=== PATIENT | female | born 1980 | race Caucasian/White ===

== ENCOUNTER 2018-08-30 17:12 | Emergency (ER) | payer OTHER, SELFPAY ==
[2018-08-30 17:17] VITALS: BP 116/76; PULSE 73; RESP 18; TEMP 37.2; O2SAT 100; BMI 19.2
[2018-08-30 17:19] VITALS: BP 116/76; PULSE 73; RESP 18; TEMP 37.2; O2SAT 100; BMI 19.2
--- NOTE | 2018-08-30 17:21 | ED.ABDPAIN ---
HPI - Abdominal Pain <Deysi Rosales PA-C - Last Filed: 08/30/18 20:04> General Chief Complaint: Abdominal Pain Stated Complaint: upper right abdominal pain Time Seen by Provider: 08/30/18 17:15 Source: patient Mode of arrival: ambulatory Limitations: no limitations History of Present Illness HPI narrative: This generally healthy 27-year-old complains of right upper quadrant pain which is constant for the last 3 days. She states it is like a stitch that 1 gets when running, but will not resolve. She states it is worse with movement, i.e. moving from supine to sit, somewhat better lying flat. She states that this is associated with reduced appetite, maybe some nausea on Sunday but none since, just does not want to eat. She has not had vomiting or diarrhea or blood in the stools, normal bowel movements. She denies any urinary symptoms or hematuria. She denies any recent respiratory symptoms or cough. She denies chest pain or dyspnea. She denies fever or rash or other new complaints on systems review. She states that she does have a 35 lb 4-year-old and thought maybe just due to lifting which is why she did not come in initially, however has had rib strain in the past and this is not typical. She denies any possibility of , LMP 2 days ago Related Data Home Medications Medication Instructions Recorded Confirmed No Known Home Medications 08/30/18 08/30/18 Allergies Allergy/AdvReac Type Severity Reaction Status Date / Time Sulfa (Sulfonamide Allergy Verified 08/30/18 17:16 Antibiotics) ENTEX Allergy Uncoded 08/30/18 17:16 Review of Systems <Deysi Rosales PA-C - Last Filed: 08/30/18 20:04> Review of Systems ROS Unobtainable: All systems reviewed & are unremarkable except as noted in HPI and below PFSH <Deysi Rosales PA-C - Last Filed: 08/30/18 20:04> Medical History (Updated 08/30/18 @ 19:39 by Deysi Rosales PA-C) No chronic problems (Chronic) Surgical History (Updated 08/30/18 @ 17:38 by Deysi Rosales PA-C) Status post knee surgery (Resolved) S/P T&A (status post tonsillectomy and adenoidectomy) (Resolved) Status post eye surgery (Resolved) Status post catheter-placed plug or coil occlusion of PDA (Resolved) Social History Smoking Status: Never smoker Social History Smoking Status: Never smoker Exam <Deysi Rosales PA-C - Last Filed: 08/30/18 20:04> Narrative Exam Narrative: GENERAL APPEARANCE: Patient sitting comfortably, in no distress. HEENT: PERRL, EOMI, no scleral icterus, conjunctivae pink, normal oropharynx NECK: Supple LUNGS: Clear to auscultation bilaterally. CHEST: Tender along the 12th rib anterior lateral borders bilaterally, more on the right HEART: Rate and rhythm regular, normal S1 and S2, no S3 or S4. ABDOMEN: Soft, nondistended, bowel sounds present x 4 quadrants, no masses palpable, no hepatosplenomegaly. moderate right upper quadrant to midline tenderness, less on the left upper quadrant, no lower quadrant tenderness, no guarding or rebound, negative Arnold sign. +right CVAT EXTREMITIES: No edema, no calf tenderness DERMATOLOGIC: No jaundice or exanthem NEUROLOGIC: Alert and oriented with normal speech and coordination Initial Vital Signs Initial Vital Signs: Vital Signs Temperature 98.9 F 08/30/18 17:17 Pulse Rate 73 08/30/18 17:17 Respiratory Rate 18 08/30/18 17:17 Blood Pressure 116/76 08/30/18 17:17 Pulse Oximetry 100 08/30/18 17:17 <Roya Salinas DO - Last Filed: 08/31/18 03:32> Initial Vital Signs Initial Vital Signs: Vital Signs Temperature 98.9 F 08/30/18 17:17 Pulse Rate 73 08/30/18 17:17 Respiratory Rate 18 08/30/18 17:17 Blood Pressure 116/76 08/30/18 17:17 Pulse Oximetry 100 08/30/18 17:17 Course <Deysi Rosales PA-C - Last Filed: 08/30/18 20:04> Additional Information: The patient is feeling a little better after Toradol. Review lab and imaging studies with her, unlikely acute surgical issue. This may be musculoskeletal. Discussed importance of return if any new or acutely worsening symptoms, and also close follow-up with PCP for serial exams and may need further evaluation, and she is agreeable. Orders Ordered: ED Orders 08/30/18 18:47 Urine Microscopic Stat Discontinued Medications Sodium Chloride (Normal Saline 0.9%) 1,000 mls @ 1,000 mls/hr IV BOLUS ONE Stop: 08/30/18 18:31 Last Infusion: 08/30/18 18:41 Dose: 0 mls/hr Admin: 08/30/18 17:41 Dose: 1,000 mls/hr Ketorolac Tromethamine (Toradol) 30 mg IV NOW ONE Stop: 08/30/18 17:33 Last Admin: 08/30/18 17:41 Dose: 30 mg Vital Signs - 8 hr 08/30/18 19:44 Pulse Rate 72 Respiratory Rate 18 Blood Pressure 111/73 Pulse Oximetry 98 <Roya Salinas DO - Last Filed: 08/31/18 03:32> Orders Ordered: ED Orders 08/30/18 18:47 Urine Microscopic Stat Discontinued Medications Sodium Chloride (Normal Saline 0.9%) 1,000 mls @ 1,000 mls/hr IV BOLUS ONE Stop: 08/30/18 18:31 Last Infusion: 08/30/18 18:41 Dose: 0 mls/hr Admin: 08/30/18 17:41 Dose: 1,000 mls/hr Ketorolac Tromethamine (Toradol) 30 mg IV NOW ONE Stop: 08/30/18 17:33 Last Admin: 08/30/18 17:41 Dose: 30 mg Vital Signs - 8 hr 08/30/18 19:44 Pulse Rate 72 Respiratory Rate 18 Blood Pressure 111/73 Pulse Oximetry 98 MDM - Abdominal Pain <Deysi Rosales PA-C - Last Filed: 08/30/18 20:04> Lab Data Attestation: I reviewed the patient's lab results. Result diagrams: 08/30/18 17:37 08/30/18 17:37 Lab Results 08/30/18 08/30/18 08/30/18 Range/Units 17:37 17:37 18:47 WBC 6.5 (4.5-11.0) X10^3/uL RBC 4.84 (4.0-5.2) X10^6/uL Hgb 13.6 (12.0-16.0) g/dL Hct 41.1 (36-46) % MCV 85.0 (80-100) fL MCH 28.2 (26-34) PG MCHC 33.1 (30-36) % RDW 13.1 (11.6-14.8) % Plt Count 135 L (150-400) X10^3/uL Neut % (Auto) 56.1 (50-75) % Lymph % (Auto) 32.6 (25-40) % [place] % (Auto) 8.8 (3-14) % Eos % (Auto) 1.3 L (2-4) % Baso % (Auto) 1.2 (0-2) % Neut # (Auto) 3700 (6657-3501) /uL Lymph # (Auto) 2100 (4714-4384) /uL [place] # (Auto) 600 (0-900) /uL Eos # (Auto) 100 (0-450) /uL Baso # (Auto) 100 (0-100) /uL Sodium 138 (137-145) mmol/L Potassium 3.8 (3.4-5.1) mmol/L Chloride 101 (98-107) mmol/L Carbon Dioxide 29 (22-32) mmol/L BUN 21 H (7-17) mg/dL Creatinine 0.90 (0.52-1.04) mg/dL Estimated GFR > 60.0 (>60) mL/min BUN/Creatinine Ratio 23.3 H (6-22) Glucose 96 (70-100) mg/dL Calcium 8.8 (8.4-10.2) mg/dL Total Bilirubin 0.3 (0.2-1.3) mg/dL AST 16 (14-36) IU/L ALT 22 (9-52) IU/L Alkaline Phosphatase 41 (38-126) U/L Total Protein 7.3 (6.3-8.2) g/dL Albumin 4.4 (3.5-5.0) g/dL Globulin 2.9 (1.7-4.1) g/dL Albumin/Globulin Ratio 1.5 (1.0-2.8) Lipase 127 (23-300) U/L Urine RBC None seen (0-5/HPF) Urine WBC 0-1/hpf (0-5/HPF) Ur Squamous Epith Cells 0-1 /hpf (0-5/HPF) Amorphous Sediment 2+ Urine Bacteria None seen (None) Ur Culture Indicated? Cult not indicated Point of care testing: Point of Care Testing Test Results Negative Urine Dip Bedside Urine Glucose Negative Bedside Urine Bilirubin - Negative Bedside Urine Ketone - Negative Urine Specific [place] 1.015 Bedside Urine Occult Blood - Negative Bedside Urine pH 7.0 Bedside Urine Protein - Negative Bedside Urine Urobilinogen - Negative Bedside Urine Nitrite - Negative Bedside Urine Leukocytes ++ 125 Esterase Imaging Data Chest x-ray: Radiologist's impression: [address] [id number] XRay Report Signed Patient: Monique Sharp KMR#: [id number] : 10/26/1990Acct:[id number] Age/Sex: 27 / FDate of Service: 08/30/18 Loc: ED Accession Number: [id number] Procedure: XR chest 2V Ordering Provider: Deysi Rosales P.A-C PROCEDURE: XR CHEST 2V INDICATIONS: rib pain (most R. lower) TECHNIQUE: 2 views of the chest were acquired. COMPARISON: None. FINDINGS: Surgical changes and devices: None. Lungs and pleura: Lungs are clear. No pleural effusions or pneumothorax. Mediastinum: Mediastinal contours are normal. Heart size is normal. Bones and chest wall: No suspicious bony abnormalities. Soft tissues appear unremarkable. IMPRESSION: Source of rib pain is not seen. Dictated by: Hi Martinez M.D. on 08/30/2018 at 18:06 Approved by: Hi Martinez M.D. on 08/30/2018 at 18:06 US - abdomen: Radiologist's impression: [address] [address] Ultrasound Report Signed Patient: Monique Sharp KMR#: [id number] : 1980Acct:[id number] Age/Sex: 37 / FDate of Service: 08/30/18 Loc: ED Accession Number: [id number] Procedure: US abdomen complete Ordering Provider: Deysi Rosales P.A-C PROCEDURE: US ABDOMEN COMPLETE INDICATIONS: RIGHT UPPER QUADRANT PAIN TECHNIQUE: Real-time scanning was performed of the abdominal and retroperitoneal organs, with image documentation. COMPARISON: None. FINDINGS: Liver: Liver is normal in size and homogeneous in echotexture. Gallbladder: 2 polyps are seen within the gallbladder lumen, 3 mm and 4.3 mm respectively Biliary ducts: Intrahepatic bile ducts are non-dilated. Extrahepatic bile duct caliber measures 3.2 mm. Normal is 6-7 mm or less in diameter, or 10 mm or less post-cholecystectomy. Pancreas: Visualized portions of the pancreas are sonographically normal. Spleen: Spleen is normal in size and homogeneous in echotexture. Kidneys: Kidneys are normal in size and echotexture. Right kidney measures 11.1 cm long; left kidney measures 9.2 cm long. No hydronephrosis or nephrolithiasis. No solid masses. Aorta: Visualized aorta is normal in caliber at less than 3 cm. Iliacs: Proximal common iliac arteries are normal in caliber at less than 2.5 cm. IVC: Intrahepatic inferior vena cava is patent. Miscellaneous: No free abdominal fluid. IMPRESSION: 2 polyps in the gallbladder lumen are incidentally noted, and these are generally nontender. A definite source of right upper quadrant pain is not seen. Dictated by: Hi Martinez M.D. on 08/30/2018 at 18:53 Approved by: Hi Martinez M.D. on 08/30/2018 at 18:54 <Roya Salinas DO - Last Filed: 08/31/18 03:32> Lab Data Lab Results 08/30/18 08/30/18 08/30/18 Range/Units 17:37 17:37 18:47 WBC 6.5 (4.5-11.0) X10^3/uL RBC 4.84 (4.0-5.2) X10^6/uL Hgb 13.6 (12.0-16.0) g/dL Hct 41.1 (36-46) % MCV 85.0 (80-100) fL MCH 28.2 (26-34) PG MCHC 33.1 (30-36) % RDW 13.1 (11.6-14.8) % Plt Count 135 L (150-400) X10^3/uL Neut % (Auto) 56.1 (50-75) % Lymph % (Auto) 32.6 (25-40) % [place] % (Auto) 8.8 (3-14) % Eos % (Auto) 1.3 L (2-4) % Baso % (Auto) 1.2 (0-2) % Neut # (Auto) 3700 (9970-0350) /uL Lymph # (Auto) 2100 (3809-8038) /uL [place] # (Auto) 600 (0-900) /uL Eos # (Auto) 100 (0-450) /uL Baso # (Auto) 100 (0-100) /uL Sodium 138 (137-145) mmol/L Potassium 3.8 (3.4-5.1) mmol/L Chloride 101 (98-107) mmol/L Carbon Dioxide 29 (22-32) mmol/L BUN 21 H (7-17) mg/dL Creatinine 0.90 (0.52-1.04) mg/dL Estimated GFR > 60.0 (>60) mL/min BUN/Creatinine Ratio 23.3 H (6-22) Glucose 96 (70-100) mg/dL Calcium 8.8 (8.4-10.2) mg/dL Total Bilirubin 0.3 (0.2-1.3) mg/dL AST 16 (14-36) IU/L ALT 22 (9-52) IU/L Alkaline Phosphatase 41 (38-126) U/L Total Protein 7.3 (6.3-8.2) g/dL Albumin 4.4 (3.5-5.0) g/dL Globulin 2.9 (1.7-4.1) g/dL Albumin/Globulin Ratio 1.5 (1.0-2.8) Lipase 127 (23-300) U/L Urine RBC None seen (0-5/HPF) Urine WBC 0-1/hpf (0-5/HPF) Ur Squamous Epith Cells 0-1 /hpf (0-5/HPF) Amorphous Sediment 2+ Urine Bacteria None seen (None) Ur Culture Indicated? Cult not indicated Point of care testing: Point of Care Testing Test Results Negative Urine Dip Bedside Urine Glucose Negative Bedside Urine Bilirubin - Negative Bedside Urine Ketone - Negative Urine Specific [place] 1.015 Bedside Urine Occult Blood - Negative Bedside Urine pH 7.0 Bedside Urine Protein - Negative Bedside Urine Urobilinogen - Negative Bedside Urine Nitrite - Negative Bedside Urine Leukocytes ++ 125 Esterase Discharge Plan Departure Patient Disposition: Home Clinical Impression: Abdominal pain Qualifiers: Abdominal location: upper abdomen, unspecified Qualified Code(s): R10.10 - Upper abdominal pain, unspecified Discharge Date/Time: 08/30/18 19:45 Interventions: ED Discharge Assessment Last Done: 08/30/18 19:44 Instructions: DI for Abdominal Pain-Adult Activity Restrictions/Additional Instructions: Your lab tests and radiology studies did not show any acute problem this evening. The source of your pain is not clear, it could be musculoskeletal. Please return as we talked about if you acutely worsening symptoms, or new symptoms such as fever or vomiting. Otherwise, please consistently take 2 Aleve twice daily or for ibuprofen (800 mg) every 8 hours which are equivalent to prescription doses, to see if this helps with your pain since the anti-inflammatory pain reliever we gave you in the IV seemed to help somewhat tonight. You can add Tylenol to this as needed. Avoid strain on the abdomen and rib areas. Please see your PCP next week for recheck and to determine whether further testing or treatment are needed at that time depending upon your progress. Prescriptions: No Action No Known Home Medications RF: 0 Referrals: Raj Berg MD [Non-Staff] - <Roya Salinas DO - Last Filed: 08/31/18 03:32> Cosign ED Attending Liamature Attestation: I was immediately available in the department for consultation. Documentation has been reviewed. I agree with assessment and plan.
--- NOTE | 2018-08-30 17:33 | DI.RAD.S_ITS ---
PROCEDURE: XR CHEST 2V INDICATIONS: rib pain (most R. lower) TECHNIQUE: 2 views of the chest were acquired. COMPARISON: None. FINDINGS: Surgical changes and devices: None. Lungs and pleura: Lungs are clear. No pleural effusions or pneumothorax. Mediastinum: Mediastinal contours are normal. Heart size is normal. Bones and chest wall: No suspicious bony abnormalities. Soft tissues appear unremarkable. IMPRESSION: Source of rib pain is not seen. Dictated by: Hi Martinez M.D. on 08/30/2018 at 18:06 Approved by: Hi Martinez M.D. on 08/30/2018 at 18:06
--- NOTE | 2018-08-30 17:33 | DI.US.S_ITS ---
PROCEDURE: US ABDOMEN COMPLETE INDICATIONS: RIGHT UPPER QUADRANT PAIN TECHNIQUE: Real-time scanning was performed of the abdominal and retroperitoneal organs, with image documentation. COMPARISON: None. FINDINGS: Liver: Liver is normal in size and homogeneous in echotexture. Gallbladder: 2 polyps are seen within the gallbladder lumen, 3 mm and 4.3 mm respectively Biliary ducts: Intrahepatic bile ducts are non-dilated. Extrahepatic bile duct caliber measures 3.2 mm. Normal is 6-7 mm or less in diameter, or 10 mm or less post-cholecystectomy. Pancreas: Visualized portions of the pancreas are sonographically normal. Spleen: Spleen is normal in size and homogeneous in echotexture. Kidneys: Kidneys are normal in size and echotexture. Right kidney measures 11.1 cm long; left kidney measures 9.2 cm long. No hydronephrosis or nephrolithiasis. No solid masses. Aorta: Visualized aorta is normal in caliber at less than 3 cm. Iliacs: Proximal common iliac arteries are normal in caliber at less than 2.5 cm. IVC: Intrahepatic inferior vena cava is patent. Miscellaneous: No free abdominal fluid. IMPRESSION: 2 polyps in the gallbladder lumen are incidentally noted, and these are generally nontender. A definite source of right upper quadrant pain is not seen. Dictated by: Hi Martinez M.D. on 08/30/2018 at 18:53 Approved by: Hi Martinez M.D. on 08/30/2018 at 18:54
[2018-08-30] MEDS: SODIUM CHLORIDE 0.9% 1,000 ML 1000 ML IV (17:41)
[2018-08-30] MEDS: KETOROLAC 60 MG/2 ML VIAL 30 MG IV (17:41)
[2018-08-30 17:58] LABS: Alanine Aminotransferase 22 IU/L (9-52); Albumin 4.4 g/dL (3.5-5.0); Albumin Globulin Ratio 1.5 (1.0-2.8); Alkaline Phosphatase 41 U/L (38-126); Aspartate Aminotransferase 16 IU/L (14-36); BUN Creatinine Ratio 23.3 (6-22); Bilirubin Total 0.3 mg/dL (0.2-1.3); Blood Urea Nitrogen 21 mg/dL (7-17); Calcium 8.8 mg/dL (8.4-10.2); Carbon Dioxide 29 mmol/L (22-32); Chloride 101 mmol/L (98-107); Estimated Glomerular Filt Rate > 60.0 mL/min (>60); Globulin 2.9 g/dL (1.7-4.1); Glucose 96 mg/dL (70-100); HEMOLYSIS < 15 (0-50); Lipase 127 U/L (23-300); Potassium 3.8 mmol/L (3.4-5.1); Sodium 138 mmol/L (137-145); Total Protein 7.3 g/dL (6.3-8.2)
[2018-08-30 18:05] LABS: Add Manual Diff / Slide Review NO; Basophils Absolute Auto 100 /uL (0-100); Basophils Percent Auto 1.2 % (0-2); Eosinophils Absolute Auto 100 /uL (0-450); Eosinophils Percent Auto 1.3 % (2-4); Hematocrit 41.1 % (36-46); Hemoglobin 13.6 g/dL (12.0-16.0); Lymphocytes Absolute Auto 2100 /uL (1100-4500); Lymphocytes Percent Auto 32.6 % (25-40); Mean Corpuscular HGB Conc 33.1 % (30-36); Mean Corpuscular Hemoglobin 28.2 PG (26-34); Monocytes Absolute Auto 600 /uL (0-900); Monocytes Percent Auto 8.8 % (3-14); Neutrophils Absolute Auto 3700 /uL (1500-7000); Neutrophils Percent Auto 56.1 % (50-75); Red Blood Cell Count 4.84 X10^6/uL (4.0-5.2); Red Cell Distribution Width 13.1 % (11.6-14.8); White Blood Cell Count 6.5 X10^3/uL (4.5-11.0)
[2018-08-30 18:29] LABS: Platelet Count 135 X10^3/uL (150-400)
[2018-08-30 19:01] LABS: Bacteria Urine None Seen; RBC Urine None Seen (0-5/HPF)
[2018-08-30 19:17] LABS: Amorphous Sediment Urine 2+; Culture Indicated Urine Cult Not Indicated; Squamous Epithelial Cell Urine 0-1 /HPF (0-5/HPF); WBC Urine 0-1/HPF (0-5/HPF)
[2018-08-30 19:44] VITALS: BP 111/73; PULSE 72; RESP 18; O2SAT 98
== END 2018-08-30 19:45 | disposition home or self-care (01) ==
PROVIDERS: Emergency Provider Internal Medicine
DX: R10.10 Upper abdominal pain, unspecified (principal)
CPT/HCPCS: 36415; 36591; 71046; 76700; 80053; 81003; 81015; 81025; 83690; 85025; 96361; 96374; 99283; 99284; J1885

== ENCOUNTER 2020-04-04 19:54 | Emergency (ER) | payer OTHER, SELFPAY ==
[2020-04-04 20:13] VITALS: BP 116/61; PULSE 77; RESP 17; O2SAT 99
[2020-04-04 20:16] VITALS: BP 116/61; PULSE 79; RESP 24; TEMP 36.9; O2SAT 100
[2020-04-04 20:27] LABS: Add Manual Diff / Slide Review NO; Basophils Absolute Auto 100 /uL (0-100); Basophils Percent Auto 0.9 % (0-2); Eosinophils Absolute Auto 200 /uL (0-450); Eosinophils Percent Auto 1.9 % (2-4); Hematocrit 40.5 % (36-46); Hemoglobin 13.5 g/dL (12.0-16.0); Lymphocytes Absolute Auto 2200 /uL (1100-4500); Lymphocytes Percent Auto 23.4 % (25-40); Mean Corpuscular HGB Conc 33.2 % (30-36); Mean Corpuscular Volume 84.4 fL (80-100); Monocytes Absolute Auto 600 /uL (0-900); Monocytes Percent Auto 6.9 % (3-14); Neutrophils Absolute Auto 6200 /uL (1500-7000); Neutrophils Percent Auto 66.9 % (50-75); Platelet Count 131 X10^3/uL (150-400); Red Cell Distribution Width 12.9 % (11.6-14.8); White Blood Cell Count 9.3 X10^3/uL (4.5-11.0)
--- NOTE | 2020-04-04 20:37 | ED_ITS ---
HPI - General Adult General Chief complaint: Abdominal Pain Stated complaint: Abd Pain Time Seen by Provider: 04/04/20 20:10 Source: patient Mode of arrival: Ambulatory Limitations: no limitations History of Present Illness HPI narrative: Patient is a 39-year-old female here for evaluation of right lower quadrant/right adnexa pain. She states the symptoms started earlier this afternoon. She thought that it was fairly sudden onset. Has not urinated had a bowel movement since the start of the symptoms but reports no symptoms with regard to these organ systems prior to the development of the abdominal pain. H as had some nausea but no vomiting. No prior abdominal surgeries. Not currently on control. No changes in her skin. Has not tried anything for his symptoms prior to arrival. Related Data Home Medications Medication Instructions Recorded Confirmed No Known Home Medications 08/30/18 08/30/18 Allergies Allergy/AdvReac Type Severity Reaction Status Date / Time Sulfa (Sulfonamide Allergy Verified 04/04/20 20:25 Antibiotics) ENTEX Allergy Uncoded 04/04/20 20:25 Review of Systems Constitutional Constitutional: Denies fever(s) and Denies headache(s) ENT Ears, Nose, Mouth, and Throat: Denies vertigo, Denies dizziness and Denies headache(s) Cardiovascular Cardiovascular: Denies chest pain and Denies dyspnea Respiratory Respiratory: Denies dyspnea Gastrointestinal Gastrointestinal: Reports abdominal pain, Denies change in bowel habits, Reports nausea and Denies vomiting Genitourinary Genitourinary: Denies hematuria and Denies dysuria Genitourinary: Denies hematuria, Denies dysuria and Denies vaginal discharge Musculoskeletal Musculoskeletal: Denies arthralgias and Denies myalgias Integumentary/Breasts Skin/Breast: Denies lesions and Denies rash Neurologic Neurologic: Denies vertigo, Denies dizziness and Denies headache(s) Psychiatric Psychiatric: Denies depression Hematologic/Lymphatic Hematologic/Lymphatic: Denies easy bleeding and Denies easy bruising Allergic/Immunologic Allergic/Immunologic: Denies urticaria Patient History Medical History No chronic problems (Chronic) Surgical History (Updated 08/30/18 @ 17:38 by Deysi Rosales PA-C) S/P T&A (status post tonsillectomy and adenoidectomy) (Resolved) Status post catheter-placed plug or coil occlusion of PDA (Resolved) Status post eye surgery (Resolved) Status post knee surgery (Resolved) Social History Smoking Status: Never smoker Smoking Status: Never smoker Substance Use Type: does not use Exam Initial Vital Signs Initial Vital Signs: Vital Signs Pulse Rate 77 04/04/20 20:13 Respiratory Rate 17 04/04/20 20:13 Blood Pressure 116/61 04/04/20 20:13 Pulse Oximetry 99 04/04/20 20:13 Const General: cooperative and comfortable Limitations: mental status not altered HENMT Head: normal to inspection and normocephalic Resp Effort & Inspection: normal respiratory effort Auscultation: clear to auscultation bilaterally Cardio Rate: regular rate Rhythm: regular rhythm GI Inspection: non-distended Palpation: soft and tender (Right lower quadrant) Back/Spine/Pelvis Back: No CVA tenderness Skin Lesions: no lesions Rashes: no rashes Neuro General: patient alert and patient awake Cognition: normal cognition Speech: speech normal Extrem General: normal to inspection and capillary refill normal Psych Appearance: grossly normal and well kempt Scores GCS [place] coma scale eye opening: Spontaneous [place] coma scale verbal response: Orientated [place] coma scale motor response: Obey commands Peterson coma scale total score: 15 Course Orders Ordered: ED Orders 04/04/20 20:24 Complete Blood Count AUTO DIFF Stat Comprehensive Metabolic Panel Stat Lipase Stat 04/04/20 20:39 CT abdomen pelvis w con Stat 04/04/20 22:06 US pelvic complete Stat 04/04/20 22:30 Urine Culture Stat Urine Microscopic Stat Discontinued Medications Hydrocodone Bitart/Acetaminophen (Vicodin 5/325 Prepack) 1 bottle MISC SEEINSTR ONE Stop: 04/05/20 00:25 Last Admin: 04/05/20 00:31 Dose: 1 bottle Documented by: CARLY Sodium Chloride (Normal Saline 0.9%) 1,000 mls @ 1,000 mls/hr IV BOLUS ONE Stop: 04/04/20 21:37 Last Admin: 04/04/20 20:43 Dose: 1,000 mls/hr Documented by: TAHIRA Morphine Sulfate (Morphine) 4 mg IV NOW ONE Stop: 04/04/20 20:39 Last Admin: 04/04/20 20:43 Dose: 4 mg Documented by: TAHIRA Ondansetron HCl (Zofran) 4 mg IV NOW ONE Stop: 04/04/20 20:39 Last Admin: 04/04/20 20:43 Dose: 4 mg Documented by: TAHIRA Vital Signs Vital signs: Vital Signs - 8 hr 04/04/20 20:13 04/04/20 20:16 04/04/20 21:09 Temperature 98.4 F Pulse Rate 77 79 76 Respiratory Rate 17 24 Blood Pressure 116/61 116/61 Pulse Oximetry 99 100 100 04/04/20 21:30 04/04/20 22:00 04/04/20 22:30 Temperature Pulse Rate 73 75 74 Respiratory Rate Blood Pressure Pulse Oximetry 99 99 100 04/05/20 00:36 Temperature Pulse Rate 71 Respiratory Rate 16 Blood Pressure 116/65 Pulse Oximetry 99 Medical Decision Making Lab Data Lab results reviewed: Yes I reviewed the patient's lab results. Result diagrams: 04/04/20 20:24 04/04/20 20:24 Labs: Lab Results 04/04/20 04/04/20 04/04/20 Range/Units 20:24 20:24 22:30 WBC 9.3 (4.5-11.0) X10^3/uL RBC 4.80 (4.0-5.2) X10^6/uL Hgb 13.5 (12.0-16.0) g/dL Hct 40.5 (36-46) % MCV 84.4 (80-100) fL MCH 28.0 (26-34) PG MCHC 33.2 (30-36) % RDW 12.9 (11.6-14.8) % Plt Count 131 L (150-400) X10^3/uL Neut % (Auto) 66.9 (50-75) % Lymph % (Auto) 23.4 L (25-40) % [place] % (Auto) 6.9 (3-14) % Eos % (Auto) 1.9 L (2-4) % Baso % (Auto) 0.9 (0-2) % Neut # (Auto) 6200 (9453-4285) /uL Lymph # (Auto) 2200 (9423-2288) /uL [place] # (Auto) 600 (0-900) /uL Eos # (Auto) 200 (0-450) /uL Baso # (Auto) 100 (0-100) /uL Sodium 136 L (137-145) mmol/L Potassium 3.8 (3.4-5.1) mmol/L Chloride 104 (98-107) mmol/L Carbon Dioxide 26 (22-32) mmol/L BUN 19 H (7-17) mg/dL Creatinine 0.59 (0.52-1.04) mg/dL Estimated GFR > 60.0 (>60) mL/min BUN/Creatinine Ratio 32.2 H (6-22) Glucose 118 H (70-100) mg/dL Calcium 8.7 (8.4-10.2) mg/dL Total Bilirubin 0.3 (0.2-1.3) mg/dL AST 17 (14-36) IU/L ALT 11 (<35) IU/L Alkaline Phosphatase 49 (38-126) U/L Total Protein 6.9 (6.3-8.2) g/dL Albumin 4.2 (3.5-5.0) g/dL Globulin 2.7 (1.7-4.1) g/dL Albumin/Globulin Ratio 1.6 (1.0-2.8) Lipase 153 (23-300) U/L Urine RBC None seen (0-5/HPF) Urine WBC 1-5/hpf (0-5/HPF) Ur Squamous Epith Cells 1-5 /hpf (0-5/HPF) Urine Bacteria Moderate (10-30) H (None) Ur Culture Indicated? Specimen cultured Point of Care Testing Test Results Negative Urine Dip Bedside Urine Glucose Negative Bedside Urine Bilirubin - Negative Bedside Urine Ketone - Negative Urine Specific [place] 1.010 Bedside Urine Occult Blood - Negative Bedside Urine pH 6 Bedside Urine Protein - Negative Bedside Urine Urobilinogen - Negative Bedside Urine Nitrite - Negative Bedside Urine Leukocytes + 70 Esterase Point of care testing: Point of Care Testing Test Results Negative Urine Dip Bedside Urine Glucose Negative Bedside Urine Bilirubin - Negative Bedside Urine Ketone - Negative Urine Specific [place] 1.010 Bedside Urine Occult Blood - Negative Bedside Urine pH 6 Bedside Urine Protein - Negative Bedside Urine Urobilinogen - Negative Bedside Urine Nitrite - Negative Bedside Urine Leukocytes + [address] scan - abdomen/pelvis: Radiologist's Impression: [address] [address] [address] Scan Report Signed Patient: Monique Sharp KMR#: [id number] : 1980Acct:[id number] Age/Sex: 39 / FDate of Service: 04/04/20 Loc: ED Accession Number: [id number] Procedure: CT abdomen pelvis w con Ordering Provider: Zeb Cancino D.O. PROCEDURE: CT ABDOMEN PELVIS W CON INDICATIONS: Right lower quadrant abdominal pain TECHNIQUE: After the administration of intravenous contrast, 5 mm thick sections acquired from the diaphragm to the symphysis. 5 mm coronal and sagittal reformats were acquired. For radiation dose reduction, the following was used: automated exposure control, adjustment of mA and/or kV according to patient size. COMPARISON: None. FINDINGS: Image quality: Excellent. ABDOMEN: Lung bases: Lung bases are clear. Heart size is normal. Solid organs: Liver is normal in size and enhancement. Gallbladder contains a few small foci adherent to the anterior wall, polyps versus stones measuring less than 5 mm . Biliary system is non dilated. Pancreas enhances normally. Spleen is normal in size and enhancement. No adrenal nodules. Kidneys demonstrate normal size. There are two nonobstructing intrarenal calculi in the right upper pole and slight prominence of the collecting system. There are two nonobstructing calculi in the left lower pole and there is no hydronephrosis. No visible hydroureter. Peritoneum and bowel: Bowel loops demonstrate normal wall thickness and caliber. The cecum is found in the midline and an air-filled appendix is present in the central low abdomen. No periappendiceal inflammation. Increased quantity of colonic stool present. No free fluid or air. Nodes and vessels: No retroperitoneal or mesenteric adenopathy by size criteria. Aorta and inferior vena cava are normal in size. Miscellaneous: No ventral hernias. PELVIS: Genitourinary: The urinary bladder is distended. Bladder wall thickness is normal. The uterus appears normal. The structure believed to be the right ovary is displaced anterior and superior within the pelvis nearly to the level of the iliac crest and contains a 4.7 cm cyst and trace adjacent fluid. The left ovary is normal in position and morphology. Miscellaneous: No inguinal hernias or adenopathy. Bones: No suspicious bony lesions. No vertebral body compression fractures. IMPRESSION: 1. 4.7 cm right ovarian cyst, likely etiology of patient's pain. 2. Noninflamed central appendix. 3. Bilateral nonobstructing intrarenal calculi. Dictated by: Sofy Nixon M.D. on 04/04/2020 at 21:46 Approved by: Sofy Nixon M.D. on 04/04/2020 at 21:57 US - [employer] ARCHITECT: Radiologist's Impression: Multilocular septated right ovarian cyst, benign ultrasound features of thin separations and no discrete nodules or soft tissue masses. Follow-up recommended based on clinical presentation medical history. MDM Narrative Medical decision making narrative: Patient's urine is unremarkable. Her appendix is normal in the CT scan. The cyst noted on the right ovary is most likely the cause of her symptoms. It is fairly large however there is no signs of ovarian torsion on the ultrasound. I did discuss this with the patient. Informed her that she needed talk with her primary doctor regarding the symptom s. We did discuss return precautions to include fevers and increase in pain and the concern for torsion given the size of the cyst. No indication for antibiotics. Feel we can hold on help desk associate consultation for now. Patient expressed understanding and agreement. Discharge Plan Departure Patient Disposition: Home Clinical Impression: Ovarian cyst Qualifiers: Laterality: right Qualified Code(s): N83.201 - Unspecified ovarian cyst, right side Discharge Date/Time: 04/05/20 00:36 Instructions: DI for Ovarian Cyst Activity Restrictions/Additional Instructions: I do recommend that you may contact with your primary provider to discuss follow-up and a repeat ultrasound if her symptoms are not improving. If your symptoms worsen or you develop fevers please return to the emergency department for further evaluation. Prescriptions: No Action No Known Home Medications RF: 0
[2020-04-04 20:40] LABS: Alanine Aminotransferase 11 IU/L (<35); Albumin 4.2 g/dL (3.5-5.0); Albumin Globulin Ratio 1.6 (1.0-2.8); Alkaline Phosphatase 49 U/L (38-126); Aspartate Aminotransferase 17 IU/L (14-36); BUN Creatinine Ratio 32.2 (6-22); Bilirubin Total 0.3 mg/dL (0.2-1.3); Blood Urea Nitrogen 19 mg/dL (7-17); Calcium 8.7 mg/dL (8.4-10.2); Carbon Dioxide 26 mmol/L (22-32); Chloride 104 mmol/L (98-107); Estimated Glomerular Filt Rate > 60.0 mL/min (>60); Globulin 2.7 g/dL (1.7-4.1); Glucose 118 mg/dL (70-100); HEMOLYSIS < 15 (0-50); Lipase 153 U/L (23-300); Potassium 3.8 mmol/L (3.4-5.1); Sodium 136 mmol/L (137-145); Total Protein 6.9 g/dL (6.3-8.2)
[2020-04-04] MEDS: ONDANSETRON 4 MG/2 ML INJ IV (20:43)
[2020-04-04] MEDS: SODIUM CHLORIDE 0.9% 1,000 ML 1000 ML IV (20:43)
[2020-04-04] MEDS: MORPHINE 4 MG/ML INJ IV (20:43)
[2020-04-04 21:09] VITALS: PULSE 76; O2SAT 100
[2020-04-04 21:30] VITALS: PULSE 73; O2SAT 99
[2020-04-04 22:00] VITALS: PULSE 75; O2SAT 99
--- NOTE | 2020-04-04 22:06 | DI.US.S_ITS ---
PROCEDURE: US PELVIC COMPLETE INDICATIONS: RIGHT PELVIC PAIN AND CYST ON CAT SCAN TECHNIQUE: Real-time scanning was performed of the pelvic organs, with image documentation. Additional endovaginal scanning was necessary due to incomplete visualization of the adnexal and endometrial structures by transabdominal scanning. COMPARISON: None. FINDINGS: Transabdominal scanning: Limited scanning through the kidneys shows no hydronephrosis. No pathologic free abdominal or pelvic fluid. Endovaginal scanning: Uterus: Uterus is normal in size at 10.3 x 0.4 x 7.0 cm. Uterus is anteverted. The endometrium measures 8.1 mm in combined thickness. Uterus has homogeneous echotexture. Ovaries: Right ovary measures 6.4 x 3.8 x 4.5 centimeters. There is a 4.9 x 3.5 x 3.8 centimeter septated cyst in the right ovary. Left ovary measures 2.1 x 1.7 x 1.2 centimeters. Small functional follicles noted in left ovary. IMPRESSION: 1. 4.9 x 3.5 x 3.8 centimeter complex right ovarian cyst. Finding may represent hemorrhagic cyst however other etiologies including neoplastic process cannot be excluded without follow-up imaging. Recommend follow-up pelvic ultrasound in 6 weeks to confirm resolution of the finding. 2. Uterus is sonographically normal. 3. Left ovary is sonographically normal. Dictated by: Briseida Campos MD, PhD on 04/05/2020 at 8:29 Approved by: Briseida Campos MD, PhD on 04/05/2020 at 8:31
[2020-04-04 22:30] VITALS: PULSE 74; O2SAT 100
[2020-04-04 23:35] LABS: RBC Urine None Seen (0-5/HPF)
[2020-04-04 23:45] LABS: Bacteria Urine Moderate (10-30); WBC Urine 1-5/HPF (0-5/HPF)
[2020-04-04 23:46] LABS: Culture Indicated Urine Specimen Cultured; Squamous Epithelial Cell Urine 1-5 /HPF (0-5/HPF)
[2020-04-05] MEDS: HYDROCODONE/ACET 5/325 PREPACK 1 BOTTLE MISC (00:31)
[2020-04-05 00:36] VITALS: BP 116/65; PULSE 71; RESP 16; O2SAT 99
--- NOTE | 2020-04-16 21:26 | PC.NURSE ---
Addendum entered by Tara Albarran R.N. 04/30/20 19:05: @2300 on 04/04/2020 the 1,000mL NS bolus finished. Original Note: unable to complete IVF bag due to only being able to access the charting within 7days. Patient finished full liter of 0.9% NS
== END 2020-04-05 00:36 | disposition home or self-care (01) ==
PROVIDERS: Emergency Provider Emergency Medicine
DX: N83.201 Unspecified ovarian cyst, right side (principal); R11.0 Nausea; R10.31 Right lower quadrant pain
CPT/HCPCS: 36415; 74177; 76830; 76856; 80053; 81003; 81015; 81025; 83690; 85025; 87086; 96361; 96374; 96375; 99284; J2270; J2405

== ENCOUNTER → 2020-08-16 10:22 | Outpatient (CLI) | payer OTHER, SELFPAY ==
[2020-08-16 11:39] LABS: COVID19 -Nasal RAPID Negative (Negative)
== END ==
PROVIDERS: PCP Nurse Practitioner Family; Visit Provider Obstetrics & Gynecology
DX: Z01.812 Encounter for preprocedural laboratory examination (principal); Z20.822 Contact with and (suspected) exposure to COVID-19
CPT/HCPCS: 87635

== ENCOUNTER 2020-08-17 08:39 | Day surgery (SDC) | payer OTHER, SELFPAY ==
[2020-08-17] VITALS (13 sets, daily range): BP systolic 97–126; BP diastolic 53–78; PULSE 61–87; RESP 8–18; TEMP 37–37.2; O2SAT 74–100; BMI 20.1
--- NOTE | 2020-08-17 | PATH_ITS ---
[facility] Accession Number: [id number] . 01 Material submitted: . UTERUS/FALLOPIAN - UTERUS AND BILATERAL FALLOPIAN TUBES . 02 Diagnosis: Uterus and Bilateral Fallopian Tubes, Supracervical Hysterectomy and Bilateral Salpingectomy: 1. Secretory endometrium. 2. Bilateral fallopian tubes with vascular congestion, favor procedure related. 3. Negative for neoplasia or hyperplasia. MRV 08/20/2020 1544 Local . 02 Electronically signed: . Mary Rosales MD, Pathologist NPI- [id number] . 01 Gross description: . The specimen is received in formalin, labeled uterus and bilateral tubes and consists of a 115-gram supracervically resected uterus with bilateral fallopian tubes. The specimen has been diffusely disrupted. The specimen measures 4.5 cm from cornu to cornu by 8.0 cm from superior fundus to lower uterine segment by 4.2 cm from anterior to posterior. Sectioning reveals a franco-pink hemorrhagic endometrium measuring 0.1 cm in thickness. The myometrium is franco-pink and trabeculated measuring 2.2 cm in thickness. The fallopian tubes measure 6.5 cm in length by 1.0 cm in diameter and 9.0 cm in length by 0.9 cm in diameter. The serosa is pink-purple and smooth. Sectioning reveals a franco mucosa and a stellate lumen measuring 0.4 cm in diameter. Electrical Tech/Project Manager sections are submitted. . A1-A2: lower uterine segment. A3-A6: endomyometrium (A3 full-thickness section). A7-A8: shorter fallopian tube, central cross-sections and bisected fimbria. A9: longer fallopian tube, central cross-sections and bisected fimbria. ([id number]) /MRV 08/19/[address] [place] [address] . 02 Pathologist provided ICD-10: N94.6, N92.0 . 02 CPT . 423656 Performed at: 01 [facility] [address] [id number] MD Amari Sanders MD Phone: [phone] Performed at: [id number] [place], [place] [id number] MD Mary Rosales MD Phone: [phone]
[2020-08-17] MEDS: ACETAMINOPHEN 325 MG TABLET 975 MG PO (09:24)
[2020-08-17] MEDS: LACTATED RINGERS 1,000 ML 100 ML IV (09:24)
--- NOTE | 2020-08-17 09:35 | PM.PREOP ---
Pre-operative Note COVID-19 COVID-19 status: Negative Result date/Date tested (Pos, Neg/Pending): 08/16/20 Interval Note History & Physical reviewed/Exam performed by Physician: Yes Changes to H&P: No H&P completed within 30 days and has changed as indicated here:: 08/11/20
[2020-08-17] MEDS: CEFAZOLIN 2 GM/100 ML FROZ.PIGGY IV (10:24)
--- NOTE | 2020-08-17 11:03 | SUR.OPER ---
Lithotomy on padded OR bed. [place] Pad Positioner under torso. Head on pillow, arms padded and tucked at sides. Legs secured in padded yellow fins stirrups.
[2020-08-17] MEDS: ROPIVACAINE 0.2% PF 2 MG/ML 10ML AMP 10 ML INJ (11:09)
[2020-08-17] MEDS: BUPIVACAINE 0.25% W/ EPI (PF) 10 ML VIAL 20 ML INJ (11:10)
[2020-08-17] MEDS: LACTATED RINGERS 1,000 ML 42 ML IV (12:14)
[2020-08-17] MEDS: OXYCODONE IR 5 MG TABLET PO (12:20)
--- NOTE | 2020-08-17 12:23 | PM.GYNOP.1 ---
Operative Date/Time/Diagnoses Date of procedure: 08/17/20 Time of procedure: 12:23 Pre-op diagnosis: Menorrhagia Dysmenorrhea Right ovarian cyst Post-op diagnosis: same Procedure & Clinicians Procedure: Procedures Operation Date: 08/17/20 09:45 Actual Procedures Side Surgeon p Laparoscopic Supracervical Hysterectomy W/ Bilateral Salpingectomy Erika Vazquez MD Indications: Menorrhagia Dysmenorrhea Right ovarian cyst Surgeon: Erika Vazquez Tube Machine Operator: Connie Delgado Anesthesia Type: General and Local Operative Notes Findings: Ten week size uterus Normal ovaries Evidence of a ruptured ovarian cyst Right tube stuck to the bowel Normal left tube Normal liver and gallbladder Closure Type: primary Specimen(s): left tube, right tube and uterus Applied: catheter (Removed at the end of the case) Estimated blood loss (mL): 20 Blood products transfused: none Procedure in detail: The patient was taken to the operating room where she was placed in the dorsal supine position. After adequate general endotracheal anesthesia was achieved, she was placed in the dorsal lithotomy position, and prepped and draped in the usual sterile fashion. A timeout was performed. A bivalve speculum was placed into the vagina and the anterior lip of the cervix grasped with a single-tooth tenaculum. The cervical os was sequentially dilated until the ZUMI uterine manipulator could pass easily into the endometrial cavity. The single-tooth tenaculum was removed from the anterior lip of the cervix, and the bivalve speculum was removed from the vagina. Attention was then turned to the abdomen where 6 mL of half percent Marcaine with epinephrine were injected in the umbilical fold. A 5 mm incision was made. The Verhees needle was placed into the peritoneal cavity, and its placement confirmed by aspiration and drop test. The Verhees needle was removed. A 5 mm trocar was placed without difficulty. 2 other incisions were made midway between the pubic symphysis and umbilicus after 5 mL of half percent Marcaine with epinephrine were injected. These were 5 mm incisions. Two 5 mm trochars were placed under direct visualization. The right tube was grasped with an atraumatic grasper. Using the plasma kinetic with settings of 40 W the mesosalpinx was cauterized and cut all the way down to the cornua of the uterus. The cornua of the uterus was then grasped with an atraumatic grasper. The utero-ovarian ligaments were cauterized and cut. The round ligament and broad ligament was cauterized and cut with plasma kinetic. Hemostasis was achieved. The bladder flap was created using the plasma kinetic with cautery and cut custodial across. The uterine arteries on the right side were extensively cauterized with plasma kinetic. All of this was repeated on the left side. The remainder of the bladder flap was created using the plasma kinetic, and the bladder taken down off the lower uterine segment and cervix. Using the Endoloop, the cervix was amputated from the uterus 2 cm above the uterosacral ligaments, after the ZUMI uterine manipulator was removed from the uterus. There was a small amount of bleeding noted from the posterior edge of the cervix, and this was cauterized for hemostasis. A sponge stick was placed into the vagina. 6 mL of half percent Marcaine with epinephrine were injected above the pubic symphysis. A 12 mm trocar was placed. An Endobag was placed through the suprapubic trocar and the uterus placed into the Endobag. The trocar was removed. The Ming placed into the endobag. The uterus was hand morcellated in approximately 10 pieces. The Endobag was removed from the peritoneal cavity. The pelvis was copiously irrigated with warm normal saline. No bleeding was noted. The instruments are removed from the abdomen. The CO2 was allowed to escape. The suprapubic incision was closed on the fascia with 0 Vicryl. All of the incisions were closed with 4-0 Biosyn in a subcuticular fashion. The moistened sponge stick was removed from the vagina. Sponge, lap, and instrument counts were correct x-2. The patient tolerated the procedure well, was taken to PACU in stable condition. The assistant teacher primary during this case ran the camera and did the right side of the hysterectomy to laparoscopic. They retracted the uterus during amputation of the uterus from the cervix. They placed the uterus and tubes into the endobag. They retracted during extension of the fascial incision in the suprapubic area. They assisted with retraction in morcellation of the uterus. They assisted with retraction in closure of the fascia on the suprapubic incision. They ran the camera when a 2nd look was taken of the pelvis. Complications: none Post-operative Condition: stable Disposition: PACU Plan for aftercare: Home after recovery
[2020-08-17] MEDS: hydrOXYzine 50 MG/ML INJ 25 MG IM (12:56)
[2020-08-17] MEDS: OXYCODONE/ACETAMINOPHEN 5/325 TABLET 1 TAB PO (12:56)
--- NOTE | 2020-08-17 14:27 | SUR.PHASEII ---
Addendum entered by Yazmin Le R.N. 08/17/20 15:38: Verbal orders received from Dr Vazquez for straight cath due to no urine registered on 2 different scanners. Straight cath done by Tiesha with assistance from Nicole. Urine was noted to be somewhere between 30-[address] Vazquez notified of results. Pt cleared for discharge with instruction to attempt to void Q2h and if after 4 hours she has still not voided to call Dr Gomez service. Original Note: OOB to BR. D/C pending urination. Slow but stable on transfer.
== END 2020-08-17 15:58 | disposition home or self-care (01) ==
PROVIDERS: PCP Nurse Practitioner Family; Referring Provider Nurse Practitioner Family; Visit Provider Obstetrics & Gynecology
PROC: 0UT94ZL Resection of Uterus, Supracervical, Percutaneous Endoscopic Approach (ICD-10-PCS; CPT 58542; principal; 2020-08-17 09:45)
DX: N92.0 Excessive and frequent menstruation with regular cycle (principal); N94.6 Dysmenorrhea, unspecified; J45.909 Unspecified asthma, uncomplicated; N83.291 Other ovarian cyst, right side
CPT/HCPCS: 58542; J0690; J1100; J2250; J2405; J2704; J2795; J3010; J3410

== ENCOUNTER 2022-09-23 20:23 | Emergency (ER) | payer OTHER, SELFPAY ==
[2022-09-23 20:52] VITALS: BP 128/74; PULSE 90; RESP 16; TEMP 36.8; O2SAT 98; BMI 21.9
--- NOTE | 2022-09-23 21:30 | DI.US.S_ITS ---
PROCEDURE: US PERIPH VENOUS LOW EXTREM RT INDICATIONS: PAIN, EDEMA TECHNIQUE: Real-time imaging, as well as color and pulse Doppler interrogation, were performed of the lower extremity deep veins from the inguinal ligament to the popliteal fossa. COMPARISON: None. FINDINGS: The common femoral, femoral and popliteal veins are normally compressible, and free of intraluminal thrombus. Color and pulse Doppler demonstrate normal phasic intraluminal flow. There is normal augmentation response to distal compression maneuver. IMPRESSION: No DVT found. Dictated by: Hi Martinez M.D. on 09/23/2022 at 22:34 Approved by: Hi Martinez M.D. on 09/23/2022 at 22:34
--- NOTE | 2022-09-23 21:59 | ED.EXTPRO ---
HPI - Extremity Problem General Chief complaint: Extremity Problem,Nontraumatic Stated complaint: R ankle swelling Time Seen by Provider: 09/23/22 20:29 Source: patient Mode of arrival: Family Vehicle History of Present Illness HPI Narrative: 41-year-old female nonsmoker without chronic medical problems presents with a chief complaint of swelling and some discomfort to her right lower extremity and ankle for the past few days. She denies any injury or overuse. She denies recent travel, history of clot or known cancer. She denies any upper leg pain, chest pain, palpitations or shortness of breath. She does not smoke and takes no control. She has had no fever or chills. She states that the swelling is notably worse in the right ankle than the left and seems to be worse in the evening but still present throughout the course of the day. Patient has an appointment with her primary care provider on Sunday and has been seen and evaluated for various symptoms including fatigue, weakness in the morning upon waking, joint pain in his had extensive and recent lab workups that have been unremarkable Related Data Allergies Allergy/AdvReac Type Severity Reaction Status Date / Time Sulfa (Sulfonamide Allergy Verified 09/29/20 08:15 Antibiotics) ENTEX Allergy Hives Uncoded 09/29/20 08:15 Review of Systems Review of Systems Narrative: GENERAL: Denies chills, fatigue, malaise, fever, sweats. HEENT: Denies sinus pain, ear pain, sore throat, difficulty swallowing, dizziness. RESPIRATORY: Denies dyspnea, cough, wheezing, hemoptysis, sputum. CARDIOVASCULAR: Denies chest pain, palpitations, orthopnea, edema, GASTROINTESTINAL: Denies nausea, vomiting, abdominal pain, diarrhea, constipation, melena. : Denies dysuria, frequency, incontinence, hematuria, urinary retention. MUSCULOSKELETAL: See HPI SKIN: Denies rash, skin lesions, or other NEUROLOGIC: Denies weakness, headache, numbness, change in speech, confusion, seizures, incoordination. PSYCHIATRIC: No concerning psychosocial issues. 12 point review of systems is negative except for those stated above Patient History Medical History (Updated 09/23/22 @ 22:05 by Edin Dumas DO) Asthma Heart murmur No chronic problems Pulmonary stenosis, valvar Surgical History (Updated 09/30/20 @ 06:57 by Erika Vazquez MD) S/P T&A (status post tonsillectomy and adenoidectomy) Status post catheter-placed plug or coil occlusion of PDA Status post eye surgery Status post knee surgery Status post laparoscopic supracervical hysterectomy Social History household members: spouse and family Smoking Status: Never smoker alcohol intake: never Smoking Status: Never smoker Substance Use Type: does not use Exam Narrative Exam Narrative: GEN: AOx3 and in mild distress EYES: Pupils are equal, round, and reactive to light and accommodation. Extraoccular muscles are intact bilaterally. There is no subconjunctival hemorrhage or exudate. CHEST: Lungs are clear to auscultation bilaterally and free of wheezes, rales, or rhonchi. Heart rate is regular rhythm, there are no murmurs, clicks, rubs, or gallops. There is no chest wall tenderness. ABD: Abdomen is soft and nontender. There is no guarding or rebound. Bowel sounds are normal in all 4 quadrants. There is no mass or organomegaly. EXT: Right ankle swelling with minimal tenderness, no redness or warmth, no bony tenderness, no decreased sensation, cap refill less than 2 seconds. No medial thigh pain or swelling. SKIN: Warm, pink, and dry. No erythema or rash Initial Vital Signs Initial Vital Signs: Vital Signs Temperature 98.2 F 09/23/22 20:52 Pulse Rate 90 09/23/22 20:52 Respiratory Rate 16 09/23/22 20:52 Blood Pressure 128/74 09/23/22 20:52 Pulse Oximetry 98 09/23/22 20:52 Oxygen Delivery Method Room Air 09/23/22 20:52 Course Orders Ordered: ED Orders 09/23/22 21:30 periph venous low extrem rt Stat Vital Signs Vital signs: Vital Signs - 8 hr 09/23/22 20:52 09/23/22 22:08 Temperature 98.2 F Pulse Rate 90 79 Respiratory Rate 16 18 Blood Pressure 128/74 130/71 Pulse Oximetry 98 97 Oxygen Delivery Method Room Air Room Air MDM - Extremity (Nontraumatic) MDM Narrative Medical decision making narrative: [41] year old patient presents with right foot and ankle swelling in the absence of injury Multiple etiologies for patient's symptoms considered including, but not limited to: [DVT versus peripheral dependent edema versus cellulitis versus other] Prior Charts reviewed in our EMR Primary Historian: patient Imaging reviewed: DVT study is negative Multiple diagnoses considered as noted above. DVT most concerning and thought unlikely given negative ultrasound. Cellulitis considered but there is no redness, warmth or tenderness to palpation, no lymphangitis. Systemic complaints including lung, liver and kidney considered but patient has no other symptoms currently and has had recent labs. We did discuss the utility in repeating broad lab work but sure the opinion that is not likely to change the disposition at this time. Findings and discharge diagnosis discussed with patient/family followed by verbalization of understanding Return precautions discussed with patient/family whom verbalize understanding of diagnosis and plan Discharge Plan Departure Patient Disposition: Home Clinical Impression: Edema of right lower extremity Instructions: DI for Peripheral Edema-Unilateral Activity Restrictions/Additional Instructions: *You have been diagnosed with [right lower extremity edema. As we discussed your history and physical exam are reassuring and the ultrasound demonstrates no evidence of clot.] *What to do: *Please continue to take your regular medications as directed. [ ] New medication prescriptions sent to your pharmacy: [ ] [ ] New medication written as a paper prescription [ ] No new medications given *Please follow up with your primary care provider next week as planned, please call ahead, let them know that you were seen in the emergency department and they can obtain the records for completeness. *Return to Emergency Department if you should have any new, worsening or concerning symptoms, such as [fever greater than 101 F, shaking chills, worsening pain, persistent vomiting or other bothersome symptoms] Referrals: Zo Bishop ARNP [Primary Care Provider] - Stand Alone Forms: Patient Portal/API
[2022-09-23 22:08] VITALS: BP 130/71; PULSE 79; RESP 18; O2SAT 97
== END 2022-09-23 22:11 | disposition home or self-care (01) ==
PROVIDERS: Emergency Provider Emergency Medicine; PCP Nurse Practitioner Family
DX: R60.0 Localized edema (principal)
CPT/HCPCS: 93971; 99281; 99283